=== PATIENT | female | born 1990 | race Caucasian/White ===

== ENCOUNTER 2023-05-19 09:26 | Outpatient (CLI) | payer MEDICAID, SELFPAY ==
[2023-05-19 09:54] LABS: RBC Urine 0-2 (0-2); WBC Urine 0-2 (0-5)
== END 2023-05-19 09:27 | disposition home or self-care (01) ==
LOC: NFLDUCREF 09:37
PROVIDERS: Visit Provider Nurse Practitioner Family
DX: R35.0 Frequency of micturition (principal)
CPT/HCPCS: 81015